=== PATIENT | female | born 1985 | race Caucasian/White ===

== ENCOUNTER 2016-07-15 09:38 | Emergency (ER) | payer OTHER ==
[2016-07-15] MEDS ORDERED: Ketorolac INJ* 60 MG/2 ML VIAL IM ONE (10:17)
[2016-07-15] MEDS ORDERED: Cyclobenzaprine TAB* 10 MG PO PRN (11:04)
[2016-07-15] MEDS ORDERED: HYDROcodone/ACETAMIN 5-325 MG* 1 TAB PO ONE (11:10)
[2016-07-15 11:46] VITALS: BP 109/64
--- NOTE | 2016-07-15 17:08 | UC ---
Patty Feliz Alok, scribed for Елена Duffy MD on 07/15/16 at 1022 . Back Pain HPI - HPI Summary HPI Summary: 31 y/o female presents to the with c/o back pain for the last two days. Back pain began 07/15 while bending over to pick something up and was described as a sharp, "spastic" pain, beginning in the right lower back and radiating through the buttocks to the knee. Pt has taken 600 mg ibuprofen and flexeril for pain to no alleviation 2 days ago, but has taken no medications [employer]. She states she is able to ambulate but requires assistance. 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 She denies any urinary symptoms. In addition to back pain, pt adds a cough, sore throat, chills, sinus pressure and sinus [place]ANCOCK for the last two days, and currently has a fever of 100.5 F. Pt states she has a sick child and at home. Pt denies any abd pain, numbness, or tingling. Her LMP was 06/16, though her LNMP was over 4 years ago following a childbirth, IUD, and miscarriage. - History of Current Complaint Chief Complaint: UCBackPain Stated Complaint: LOWER BACK INJURY Time Seen by Provider: 07/15/16 10:08 Hx Obtained From: Patient Hx Last Menstrual Period: 06/16/16 ?: No Onset/Duration: Gradual Onset, Lasting Days, Still Present Timing: Constant Severity Initially: Moderate Severity Currently: Moderate Pain Intensity: 7 Pain Scale Used: 0-10 Numeric Back Pain: Is Discrete @ - right lower back, Radiates To - right Buttocks and Knee Character: Sharp, Spasmodic Aggravating: Walking Alleviating: Nothing Associated Signs And Symptoms: Positive: Fever. Negative: Numbness, Tingling, Abdominal Pain - Risk Factors AAA Risk Factors: Negative TAD Risk Factors: Negative Cauda Equina Risk Factors: Negative Epidural Abscess Risk Factors: Negative - Allergies/Home Medications Allergies/Adverse Reactions: Allergies Allergy/AdvReac Type Severity Reaction Status Date / Time No Known Allergies Allergy Verified 07/15/16 09:54 Home Medications: Home Medications Cyclobenzaprine TAB* [Flexeril 10 MG TAB*] 1 tab PO PRN 07/15/16 [History] Vitamin TAB* 1 tab PO DAILY 07/15/16 [History Confirmed 07/15/16] Sertraline* [Zoloft*] 1 tab PO DAILY 07/15/16 [History Confirmed 07/15/16] PMH/Surg Hx/FS Hx/Imm Hx Previously Healthy: No - spinal stenosis in her cervical spine Cardiovascular History Of: Reports: Cardiac Disorders - Tetralolgy of fallot, surgical correction, "leaky valve." - Surgical History Surgical History: Yes Surgery Procedure, Year, and Place: Surgery for congential heart condition. 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[employer] – [place] Lives: With Family Alcohol Use: Rare Substance Use Type: None Smoking Status (MU): Never Smoked Tobacco Review of Systems Constitutional: Fever - 100.5 ENT: Sore Throat, Other - Sinus Pressure Respiratory: Cough Gastrointestinal: Negative Genitourinary: Negative Musculoskeletal: Arthralgia, Other: - Lower back tenderness, radiates to Buttocks and knee Neurological: Negative All Other Systems Reviewed And Are Negative: Yes Physical Exam Triage Information Reviewed: Yes Appearance: Well-Appearing, Well-Nourished, Pain Distress Vital Signs: Initial Vital Signs Temp 100.5 F 07/15/16 10:01 Pulse 68 07/15/16 10:01 Resp 18 07/15/16 10:01 BP 110/80 07/15/16 10:01 Pulse Ox 100 07/15/16 10:01 Temp of 100.5 F Noted Vital Signs Reviewed: Yes Eyes: Positive: Conjunctiva Clear ENT: Positive: Pharyngeal erythema, TMs normal. Negative: Tonsillar swelling, Tonsillar exudate Neck: Positive: Supple, Nontender, No Lymphadenopathy Respiratory: Positive: Lungs clear, Normal breath sounds, No respiratory distress Cardiovascular: Positive: RRR, No Murmur, Pulses Normal, Brisk Capillary Refill Abdomen Description: Positive: Nontender, No Organomegaly, Soft. Negative: CVA Tenderness (R), CVA Tenderness (L), Distended, Guarding, Hepatomegaly, McBurney' s Point Tenderness, Peritoneal Signs, Pulsatile Mass, Splenomegaly Bowel Sounds: Positive: Present Musculoskeletal: Positive: ROM Limited @ - right lower back, Other: - right Sciatic Notch Tenderness Neurological: Positive: Alert, Muscle Tone Normal, Other: - Able to walk on heels and toes. Patellar reflexes 2+ symmetric; Positive SLR on left Psychological Exam: Normal Skin Exam: Normal Re-Evaluation - Re-Evaluation First Eval Re-Evaluation Time: 11:06 Change: Improved - Pain down to a 5 after Toradol Back Pain Course/Dx - Course Course Of Treatment: Group A Strep Rapid: Negative, POC Urine Pregnacy Test: Negative, POC Urine Leukocyte Esteras: Negative. Temp is decreased after toradol and pt feels better - Differential Dx/Diagnosis Differential Diagnosis/HQI/PQRI: Compressive Cord Syndrome, Herniated Disc, Renal Colic, Strain, Sprain Provider Diagnoses: acute sciatica. acute low back pain. viral syndrome with fever Discharge - Discharge Plan Condition: Stable Disposition: HOME Prescriptions: HYDROcodone/ACETAMIN 5-325 MG* [Bode 5-325 TAB*] 1 tab PO Q6H PRN #12 tab MDD 4 PRN Reason: Pain Ibuprofen TAB* [Motrin TAB* 800 MG] 800 mg PO Q6H #40 tab Metaxalone TAB* [Skelaxin TAB*] 800 mg PO QID #40 tab Patient Education Materials: Sciatica (ED) Forms: *Work Release Referrals: Jennifer Wolff [Nurse Practitioner] - 1 Week The documentation as recorded by the Patty alfonso Alok accurately reflects the service I personally performed and the decisions made by , Елена Duffy MD.
== END 2016-07-15 11:42 | disposition home or self-care (01) ==
LOC: UCEAST 09:38
DX: M54.41 Lumbago with sciatica, right side (principal); B34.9 Viral infection, unspecified; R50.9 Fever, unspecified; Z32.02 Encounter for pregnancy test, result negative
CPT/HCPCS: 81003; 84702; 87651; 96372; 99212; G0463; J1885